=== PATIENT | female | born 1995 ===

== ENCOUNTER 2023-08-28 18:02 | Emergency (ER) | payer OTHER, SELFPAY ==
[2023-08-28 18:15] VITALS: BP 180/89; PULSE 102; RESP 16; TEMP 36.4; O2SAT 100; BMI 51.5
--- NOTE | 2023-08-28 21:00 | PC.NURSE ---
pt c/o ear pain and ST was seen yesterday at [facility] with not relief, no drooling noted, no muffled voice
[2023-08-28 21:10] VITALS: PULSE 97; O2SAT 98
[2023-08-28 21:12] VITALS: BP 160/90; PULSE 99; O2SAT 99
[2023-08-28 21:30] VITALS: BP 160/101; PULSE 97; RESP 18; O2SAT 99
--- NOTE | 2023-08-28 21:42 | ED_ITS ---
HPI - URI/Sore Throat General Chief Complaint: Upper Respiratory Symptoms Stated Complaint: Sore Throat, Blurred Vision, Anxiety Time Seen by Provider: 08/28/23 21:09 History of Present Illness HPI Narrative: 28-year-old female with history of anxiety presents for 5 days of ear and throat pain. Patient also states that her eyesight seems to be blurry your than usual. She was a history of diabetes but states that her sugars have been well controlled this last week. She reports increasing anxiety over her 's assignment, since he is in the . She was seen at [facility] last night, but is here for a 2nd opinion. Related Data Previous Rx's Medication Instructions Recorded amoxicillin 875 mg-potassium 1 tab PO Q12H #14 tabs 08/28/23 clavulanate 125 mg tablet Allergies Allergy/AdvReac Type Severity Reaction Status Date / Time No Known Drug Allergies Allergy Verified 08/28/23 18:22 Review of Systems Review of Systems Narrative: See HPI Exam Initial Vital Signs Initial Vital Signs: Vital Signs Temperature 97.5 F L 08/28/23 18:15 Pulse Rate 102 H 08/28/23 18:15 Respiratory Rate 16 08/28/23 18:15 Blood Pressure 180/89 H 08/28/23 18:15 Pulse Oximetry 100 08/28/23 18:15 Oxygen Delivery Method Room Air 08/28/23 18:15 Const: Awake, alert, tearful, anxious HEENT: EOMI, PERRLA, mild pharyngeal erythema without edema or exudates, tympanic membranes bulging bialterally with exudates present Cardiac: regular rate, regular rhythm RESP: unlabored, clear bilaterally, no wheezing Skin: Warm, Dry, intact, no rashes Neuro: AO x3, CN II-XII grossly intact, moves all extremities Course Orders Ordered: Discontinued Medications Hydrocodone Bitart/Acetaminophen (Hydrocodone/Acet 5/325 Tablet) 1 tab PO NOW ONE Stop: 08/28/23 21:43 Last Admin: 08/28/23 21:46 Dose: 1 tab Documented By: YVROSE Amoxicillin/Clavulanate Potassium (Amoxicillin/Clav 875/125 Mg) 1 tab PO NOW ONE Stop: 08/28/23 22:39 Last Admin: 08/28/23 22:48 Dose: 1 tab Documented By: YVROSE Vital Signs Vital signs: Vital Signs - 8 hr 08/28/23 18:15 08/28/23 21:10 08/28/23 21:12 Temperature 97.5 F L Pulse Rate 102 H 97 H 99 H Respiratory Rate 16 Blood Pressure 180/89 H Pulse Oximetry 100 98 99 Oxygen Delivery Method Room Air 08/28/23 21:12 08/28/23 21:30 08/28/23 21:30 Temperature Pulse Rate 97 H Respiratory Rate 18 Blood Pressure 160/90 H 160/101 H Pulse Oximetry 99 Oxygen Delivery Method MDM - URI/Sore Throat Differential Diagnosis Differential diagnosis: Likely upper respiratory infection, otitis media and sinusitis Lab Data 08/28/23 22:00 08/28/23 22:00 Labs: Lab Results 08/28/23 Range/Units 22:00 WBC 10.8 (4.5-11.0) X10^3/uL RBC 4.34 (4.0-5.2) X10^6/uL Hgb 12.7 (12.0-16.0) g/dL Hct 38.3 (36-46) % MCV 88.2 (80-100) fL MCH 29.4 (26-34) PG MCHC 33.3 (30-36) % RDW 14.0 (11.6-14.8) % Plt Count 338 (150-400) X10^3/uL Neut % (Auto) 59.8 (50-75) % Lymph % (Auto) 28.7 (25-40) % Avery % (Auto) 8.4 (3-14) % Eos % (Auto) 2.3 (2-4) % Baso % (Auto) 0.8 (0-2) % Neut # (Auto) 6500 (3510-2712) /uL Lymph # (Auto) 3100 (4613-3873) /uL Avery # (Auto) 900 (0-900) /uL Eos # (Auto) 200 (0-450) /uL Baso # (Auto) 100 (0-100) /uL Sodium 141 (137-145) mmol/L Potassium 3.7 (3.4-5.1) mmol/L Chloride 110 H (98-107) mmol/L Carbon Dioxide 25 (22-32) mmol/L BUN 12 (7-17) mg/dL Creatinine 0.43 L (0.52-1.04) mg/dL Estimated GFR > 60 (>60) mL/min BUN/Creatinine Ratio 27.9 H (6-22) Glucose 145 H (70-100) mg/dL Calcium 9.2 (8.4-10.2) mg/dL Total Bilirubin 0.4 (0.2-1.3) mg/dL AST 19 (14-36) IU/L ALT 13 (<35) IU/L Alkaline Phosphatase 73 (38-126) U/L Total Protein 7.9 (6.3-8.2) g/dL Albumin 4.2 (3.5-5.0) g/dL Globulin 3.7 (1.7-4.1) g/dL Albumin/Globulin Ratio 1.1 (1.0-2.8) MDM Narrative Medical decision making narrative: Five days of persistent ear pain and throat pain. Patient was outside any arrange for Tamiflu, no indication for viral swabbing at this time. She does appear to have exudates behind both tympanic membranes, and the right ear canal seems to have a little bit of fluid in it, however the eardrum appears grossly intact. Laboratory work shows no acute abnormalities, patient has a insulin pump and her glucose has been well controlled this week. Visual acuity recorded, 20/30 corrected. Patient was already on hydroxyzine and Zoloft, no indication for benzodiazepines at this time. Patient has an upcoming appointment with her primary care physician and she was counseled to talk about either adjusting her Zoloft dose, switching medications entirely, or starting therapy. Antibiotics sent to pharmacy of choice for otitis media Discharge Plan Departure Patient Disposition: Home Clinical Impression: Otitis media, Upper respiratory infection, Anxiety Instructions: Middle Ear Infection Prescriptions: New amoxicillin-pot clavulanate 875-125 mg tablet 1 tab PO Q12H Qty: 14 0RF Stand Alone Forms: Patient Portal/API
[2023-08-28] MEDS: HYDROCODONE/ACET 5/325 TABLET 1 TAB PO (21:46)
[2023-08-28 22:10] LABS: Add Manual Diff / Slide Review NO; Basophils Absolute Auto 100 /uL (0-100); Basophils Percent Auto 0.8 % (0-2); Eosinophils Absolute Auto 200 /uL (0-450); Eosinophils Percent Auto 2.3 % (2-4); Hematocrit 38.3 % (36-46); Hemoglobin 12.7 g/dL (12.0-16.0); Lymphocytes Absolute Auto 3100 /uL (1100-4500); Lymphocytes Percent Auto 28.7 % (25-40); Mean Corpuscular HGB Conc 33.3 % (30-36); Mean Corpuscular Hemoglobin 29.4 PG (26-34); Mean Corpuscular Volume 88.2 fL (80-100); Monocytes Absolute Auto 900 /uL (0-900); Monocytes Percent Auto 8.4 % (3-14); Neutrophils Absolute Auto 6500 /uL (1500-7000); Neutrophils Percent Auto 59.8 % (50-75); Platelet Count 338 X10^3/uL (150-400); Red Blood Cell Count 4.34 X10^6/uL (4.0-5.2); White Blood Cell Count 10.8 X10^3/uL (4.5-11.0)
[2023-08-28 22:23] LABS: Alanine Aminotransferase 13 IU/L (<35); Albumin 4.2 g/dL (3.5-5.0); Albumin Globulin Ratio 1.1 (1.0-2.8); Alkaline Phosphatase 73 U/L (38-126); Aspartate Aminotransferase 19 IU/L (14-36); BUN Creatinine Ratio 27.9 (6-22); Bilirubin Total 0.4 mg/dL (0.2-1.3); Blood Urea Nitrogen 12 mg/dL (7-17); Calcium 9.2 mg/dL (8.4-10.2); Carbon Dioxide 25 mmol/L (22-32); Chloride 110 mmol/L (98-107); Estimated Glomerular Filt Rate > 60 mL/min (>60); Globulin 3.7 g/dL (1.7-4.1); Glucose 145 mg/dL (70-100); HEMOLYSIS < 15 (0-50); Potassium 3.7 mmol/L (3.4-5.1); Sodium 141 mmol/L (137-145); Total Protein 7.9 g/dL (6.3-8.2)
[2023-08-28] MEDS: AMOXICILLIN/CLAV 875/125 MG 1 TAB PO (22:48)
[2023-08-28 23:00] VITALS: BP 159/72; PULSE 98; RESP 18; O2SAT 95
== END 2023-08-28 23:03 | disposition home or self-care (01) ==
PROVIDERS: Emergency Provider Emergency Medicine
DX: J06.9 Acute upper respiratory infection, unspecified (principal); H66.93 Otitis media, unspecified, bilateral; F41.9 Anxiety disorder, unspecified
CPT/HCPCS: 36415; 80053; 85025; 99283